=== PATIENT | female | born 1970 | race Two or more races ===

== ENCOUNTER 2017-12-06 12:29 | Emergency (ER) | payer MEDICAID ==
[~2017-12-06] VITALS: Ht 157.5 cm; Wt 75.7 kg
[2017-12-06 12:44] VITALS: BP 178/100
[2017-12-06] MEDS ORDERED: KETOROLAC TROMETH 60MG/2ML VIAL IM ONE (12:45)
== END 2017-12-06 14:58 | disposition home or self-care (01) ==
LOC: ER 12:29
DX: D25.9 Leiomyoma of uterus, unspecified (principal); N94.4 Primary dysmenorrhea
CPT/HCPCS: 76856; 81025; 96372; 99284; J1885